=== PATIENT | male | born 1950 | race Caucasian/White ===

== ENCOUNTER → 2017-04-03 | Outpatient (CLI) | payer MEDICAID ==
[~2017-04-03] MED LIST: AUGMENTIN 875 M1 TAB PO; AURALGAN 15 ML15 ML OT; VICODIN 500 MG-1 TAB PO
== END | disposition home or self-care (01) ==
LOC: RAD 16:35
DX: I51.7 Cardiomegaly (principal); I10 Essential (primary) hypertension; J44.9 Chronic obstructive pulmonary disease, unspecified; Z87.891 Personal history of nicotine dependence; Z95.2 Presence of prosthetic heart valve

== ENCOUNTER → 2018-01-16 | Outpatient (CLI) | payer MEDICARE ==
[2018-01-16 16:16] LABS: CREATININE 1.14 mg/dL (0.70-1.30)
== END | disposition home or self-care (01) ==
LOC: US 15:27 → LAB 15:27 → US 16:00 → CT 17:00
PROVIDERS: Radiology Diagnostic Radiology
DX: I65.23 Occlusion and stenosis of bilateral carotid arteries (principal)

== ENCOUNTER → 2019-02-01 | Outpatient (CLI) | payer MEDICARE ==
[~2019-02-01] MED LIST changes: +ASPIRIN ADULT L81 MG PO; +ATORVASTATIN CA80 M1 PO; +CARVEDILOL12.5 MG PO; +ENALAPRIL MALEAT5 MG PO; +TRELEGY ELLIPT1 EACH INH; +VENTOLIN 02.5 MG/3 M INH; +WARFARIN SOD5 MG PO
== END | disposition home or self-care (01) ==
LOC: US 09:30
DX: J44.1 Chronic obstructive pulmonary disease with (acute) exacerbation (principal); I11.9 Hypertensive heart disease without heart failure; E78.5 Hyperlipidemia, unspecified; R94.5 Abnormal results of liver function studies; Z79.01 Long term (current) use of anticoagulants; Z95.2 Presence of prosthetic heart valve

== ENCOUNTER → 2019-02-10 | Outpatient (CLI) | payer MEDICARE ==
[~2019-02-10] MED LIST changes: -ASPIRIN ADULT L81 MG PO; -ATORVASTATIN CA80 M1 PO; -CARVEDILOL12.5 MG PO; -ENALAPRIL MALEAT5 MG PO; -TRELEGY ELLIPT1 EACH INH; -VENTOLIN 02.5 MG/3 M INH; -WARFARIN SOD5 MG PO
[2019-02-12 16:10] LABS: MYCOPLASMA PNEUMONIAE IGG <100 U/mL (0-99); MYCOPLASMA PNEUMONIAE IGM <770 U/mL (0-769)
[2019-02-13 22:04] LABS: PARAINFLUENZA 1 CF Negative (Neg:<1:8); PARAINFLUENZA 2 CF Negative (Neg:<1:8); PARAINFLUENZA 3 CF 1:32 (Neg:<1:8)
[2019-02-15 00:08] LABS: INFLUENZA B ANTIBODIES Negative (Neg:<1:8)
== END | disposition home or self-care (01) ==
LOC: LAB 15:28
PROVIDERS: Nurse Practitioner Family
DX: Z95.2 Presence of prosthetic heart valve (principal)

== ENCOUNTER 2019-04-14 23:05 | Inpatient (IN) | payer MEDICARE ==
[~2019-04-14] VITALS: Ht 182.9 cm; Wt 86.3 kg
[2019-04-14] MEDS ORDERED: WARFARIN SOD5 MG PO (23:06)
[2019-04-14 23:12] VITALS: BP 137/83
[2019-04-14] MEDS ORDERED: ENALAPRIL MALEAT5 MG PO (23:12)
[2019-04-14] MEDS ORDERED: CARVEDILOL12.5 MG PO (23:13)
[2019-04-14] MEDS ORDERED: ATORVASTATIN CA80 M1 PO (23:13)
[2019-04-14] MEDS ORDERED: TRELEGY ELLIPT1 EACH INH (23:13)
[2019-04-14 23:37] VITALS: BP 124/100
[2019-04-14 23:39] LABS: BASO # 0.1 10*3/uL (0.0-0.1); EOS # 0.1 10*3/uL (0.0-0.4); EOS % 1.4 % (1.0-4.0); HEMATOCRIT 41.6 % (42.0-52.0); HEMOGLOBIN 13.5 g/dl (14.0-18.0); LYMPH # 1.1 10*3/uL (1.3-4.4); MEAN CELL VOLUME 96.7 fl (80.0-94.0); MEAN CORPUSCULAR HGB 31.4 pg (27.0-31.0); MEAN CORPUSCULAR HGB CONC 32.5 g/dl (33.0-37.0); MEAN PLATELET VOLUME 10.9 fl (9.6-12.3); MONO # 0.8 10*3/uL (0.1-1.0); MONO % 7.9 % (3.0-9.0); NEUT # 7.7 10*3/uL (2.3-7.9); NEUT % 77.7 % (47.0-73.0); PLATELET COUNT AUTOMATED 194 10*3/uL (130-400); RED CELL DISTRI WIDTH 14.3 % (0-14.5); WHITE BLOOD COUNT 9.9 10*3/uL (4.8-10.8)
--- NOTE | 2019-04-14 23:46 | NUR ---
PT TO CT AT THIS TIME.----ORALIA BUTTERFIELD RN
[2019-04-14 23:49] LABS: ACT PARTIAL THROMBO TIME 25.5 SECONDS (20.0-32.1); INTERNATIONAL NORM RATIO 1.5 (2.0-3.5)
[2019-04-14 23:57] LABS: ALBUMIN 3.8 gm/dl (3.1-4.5); ALKALINE PHOSPHATASE 63 U/L (45-117); BUN 16 mg/dl (7-24); CHLORIDE 105 mmol/L (98-107); CREATININE 1.09 mg/dL (0.70-1.30); SGOT/AST 75 IU/L (3-35); SGPT/ALT 44 U/L (12-78); SODIUM 138 mmol/L (136-145); TROPONIN I 0.043 ng/ml (<0.045)
[2019-04-15] VITALS (7 sets, daily range): BP systolic 108–152; BP diastolic 71–90
[2019-04-15] LABS: POTASSIUM 5.5 mmol/L (3.5-5.1)
[2019-04-15 00:07] LABS: ETHYL ALCOHOL < 3.0 mg/dl (<3)
--- NOTE | 2019-04-15 00:55 | NUR ---
CALLED TO CLARIFY ADMISSION TO THE FLOOR WITH DX OF SYNCOPE/NEW ONSET SEIZURE. READ TRIAGE ASSESSMENT TO , IT STATES PT'S CLAIMS PT HAD CLENCHED HANDS/MOUTH & FACE LOOKED PURPLE. ALSO STATES PT HAS BITE PINZON ON TONGUE. PER , PT OKAY TO COME TO THE FLOOR. SHIFT DIRECTOR NOTIFIED.
[2019-04-15 01:09] LABS: BILIRUBIN NEGATIVE (NEGATIVE); BLOOD TRACE-LYSED (NEGATIVE); CLARITY CLEAR (CLEAR); COLOR YELLOW (YELLOW); GLUCOSE NEGATIVE (NEGATIVE); KETONE NEGATIVE (NEGATIVE); LEUKO ESTERASE NEGATIVE (NEGATIVE); NITRITE NEGATIVE (NEGATIVE); PH 6.5 (5.0-9.0); SPECIFIC GRAVITY 1.015 (1.005-1.030); UROBILINOGEN 0.2 E.U./dl (0.2-1.0)
[2019-04-15 01:19] LABS: BACTERIA TRACE; HYALINE CAST 0-2; RBC 0-2 rbc/hpf (0-2); WBC 0-2 wbc/hpf (0-5)
--- NOTE | 2019-04-15 01:20 | NUR ---
A 68, admitted to , under the services of ANAYELI Pascal DO with a diagnosis of NEW ONSET SEIZURE, SYNCOPE. Chief complaint is SEIZURE. Patient arrived via wheel chair from ER. Monitor applied. Initial assessment completed. Vital signs taken and recorded. ANAYELI PASCAL DO notified of admission to the unit. Orders received. See assessment for past medical history, medications and allergies. Patient and/or family oriented to unit. [address] visitation policy reviewed. Clothing/patient valuable form completed. JASBIR CHING
[2019-04-15 01:21] LABS: URINE AMPHETAMINES < 1000 (1000ng/ml); URINE BARBITURATES < 200 (200ng/ml); URINE BENZODIAZEPINES < 200 (200ng/ml); URINE CANNABINOIDS (THC) > 50 (50ng/ml); URINE COCAINE < 300 (300ng/ml); URINE METHADONE < 300 (300ng/ml); URINE OPIATES < 300 (300ng/ml)
[2019-04-15 01:22] LABS: URINE PHENCYCLIDINE < 25 (25ng/ml)
[2019-04-15] MEDS ORDERED: ASPIRIN ADULT L81 MG PO (01:33)
--- NOTE | 2019-04-15 01:43 | NUR ---
PT MED REC UP TO DATE PER PT RECALL/LIST PROVIDED BY .
--- NOTE | 2019-04-15 01:45 | NUR ---
DR BARBOZA NOTIFIED OF ADMISSION, ORDERS RECIEVED.
--- NOTE | 2019-04-15 02:00 | NUR ---
DR. BARBOZA MADE AWARE OF WOUND ON PATIENTS TONGUE.
--- NOTE | 2019-04-15 02:25 | NUR ---
DR TAMRA MONFIED OF CRITICAL TROPONIN.
--- NOTE | 2019-04-15 06:06 | NUR ---
DR BARBOZA NOTIFIED OF CRITICAL TROPONIN.
--- NOTE | 2019-04-15 07:30 | NUR ---
PT RESTING IN BED. CO OF FEELING SORE FROM HIS FALL. HE COMPLAINS OF BACK PAIN AND LEFT EAR PAIN. DENIES THE NEED FOR ANY PAIN MEDS AT THIS TIME. RESPIRATIONS EASY AND REGULAR. CALL LIGHT WITHIN REACH. WILL CONTINUE TO MONITOR.
--- NOTE | 2019-04-15 07:47 | NUR ---
JANN TSAI [id number] Please refer to the physician's history and physical for past medical history, comorbid conditions, and allergies. Diagnosis: SYNCOPE NEW ONSET SEIZURE Geo Score: 22,LOW OR NO RISK WOUND DESCRIPTIONS: Wound Number: 1 Location of the wound: left side of tongue Type of wound: traumatic Thickness: Partial Size: 1.5cm x 1.0cm x 0.1cm Tunneling: none Undermining: none Sinus Tract: none Presence of Exudate: Sanguineous Amount: Light Color: Red, purple Odor: None Periwound Skin Appearance: Normal Wound edges: approximated Pain (associated with wound): tender to touch How does patient state this happened? pt unsure how this happened believe bit his tongue Surface the patient is resting on: Isoflex SKIN PREVENTION RECOMMENDATION: 1. Pressure redistribution support surface as appropriate 2. Elevate heels 3. Remove boots/TEDS every shift and reapply 4. Head of bed 30 degrees as tolerated 5. Assess nutrition and hydration 6. Manage moisture 7. Avoid the use of containment devices while in bed 8. Use absorptive products on surfaces limit layers of linens on bed 9. Turn and reposition every 1-2 hours in bed and every 1 hour in chair as tolerated 10. Weight shifts every 15 minutes while up in chair 11. Offloading with pillows or device to keep heels elevated off bed 12. Monitor skin at least every shift 13. Inspect under medical devices twice a day WOUND TREATMENT RECOMMENDATIONS: magic mouthwash 10ml every 4 hours prn for wound on tongue.
--- NOTE | 2019-04-15 08:32 | NUR ---
OFFICE NOTIFIED OF NEW CONSULT.
--- NOTE | 2019-04-15 08:37 | NUR ---
Dr. Stewart stated to put wound care recommendations in the hospitalist office for Dr. Mcdaniels.
[2019-04-15 08:50] LABS: BASO % 0.5 % (0.0-1.0); EOS # 0.1 10*3/uL (0.0-0.4); EOS % 1.4 % (1.0-4.0); HEMATOCRIT 41.4 % (42.0-52.0); HEMOGLOBIN 13.5 g/dl (14.0-18.0); LYMPH # 1.1 10*3/uL (1.3-4.4); LYMPH % 14.4 % (27.0-41.0); MEAN CELL VOLUME 95.4 fl (80.0-94.0); MEAN CORPUSCULAR HGB 31.1 pg (27.0-31.0); MEAN CORPUSCULAR HGB CONC 32.6 g/dl (33.0-37.0); MEAN PLATELET VOLUME 10.6 fl (9.6-12.3); MONO # 0.9 10*3/uL (0.1-1.0); MONO % 11.7 % (3.0-9.0); NEUT # 5.7 10*3/uL (2.3-7.9); NEUT % 71.4 % (47.0-73.0); PLATELET COUNT AUTOMATED 166 10*3/uL (130-400); RED BLOOD COUNT 4.34 10*6/uL (4.50-5.90); RED CELL DISTRI WIDTH 14.2 % (0-14.5); WHITE BLOOD COUNT 7.9 10*3/uL (4.8-10.8)
--- NOTE | 2019-04-15 09:00 | NUR ---
Protective Signal Operator in to talk to patient. Patient states lives at home with . There are few steps in the home. Physician: jennifer gonzalez Pharmacy: [facility], [place] health services: none Patient's level of ADLs: INDEPENDENT Patient has working utilities: all working DME: none Follow-up physician's appointment after d/c: will be made by hospitalist nurse director upon discharge Does patient want to access PORTAL?: no Discharge plan discussed with patient, he states he lives at home with his , he states he is independent in adls and ambulation, he states he will return home when medically stable and denies any home needs. JULIANNA HELMS
[2019-04-15 09:05] LABS: BUN 18 mg/dl (7-24); CHLORIDE 110 mmol/L (98-107); CREATININE 0.82 mg/dL (0.70-1.30); SODIUM 141 mmol/L (136-145)
[2019-04-15 09:09] LABS: POTASSIUM 3.7 mmol/L (3.5-5.1)
--- NOTE | 2019-04-15 09:15 | NUR ---
NOTIFIED OF CRITICAL TROPONIN OF 0.092. NO NEW ORDERS RECEIVED.
--- NOTE | 2019-04-15 09:27 | NUR ---
PT CO BACK PAIN RATED 8/10. REQUESTING TYLENOL AT THIS TIME. MEDICATED WITH PRN TYLENOL ORDERED. WILL CHECK EFFECTIVENESS. CALL LIGHT WITHIN REACH.
--- NOTE | 2019-04-15 10:41 | NUR ---
PT STATES TYLENOL WAS EFFECTIVE. WILL CONTINUE TO MONITOR.
--- NOTE | 2019-04-15 11:30 | NUR ---
PT OFF THE FLOOR FOR MRI AT THIS TIME.
--- NOTE | 2019-04-15 14:30 | NUR ---
PT REQUESTING SOMETHING STRONGER FOR PAIN. INFORMED. NEW ORDERS TO BE PUT IN.
--- NOTE | 2019-04-15 15:05 | NUR ---
PT MEDICATED WITH PRN NORCO ORDERED FOR BACK PAIN RATED AN 8/10. WILL CHECK EFFECTIVENESS. CALL LIGHT WITHIN REACH.
--- NOTE | 2019-04-15 16:00 | NUR ---
PT STATES PAIN MED WAS EFFECTIVE RATING PAIN A 4/10. WILL CONTINUE TO MONITOR. CALL LIGHT WITHIN REACH.
--- NOTE | 2019-04-15 19:34 | NUR ---
Patient resting quietly with no c/o discomfort. Respirations easy and regular. Vital signs stable. No overt distress. DEBORA WIGGINS
--- NOTE | 2019-04-15 21:42 | NUR ---
PT COMPLAINS OF KNEE PAIN 6/10 NORCO PRN GIVEN
[2019-04-16] VITALS: BP 125/87
--- NOTE | 2019-04-16 03:56 | NUR ---
SPOKE W DR BERGMAN ABOUT PT TROWING RAMO PVC'S STATED TO JUST WATCH HIM FOR NOW
--- NOTE | 2019-04-16 04:26 | NUR ---
Recommend follow up for wound care in outpatient setting patient refused at this time.
[2019-04-16 07:06] LABS: INTERNATIONAL NORM RATIO 1.6 (2.0-3.5)
[2019-04-16 08:00] VITALS: BP 160/84; BP 168/92
[2019-04-16] MEDS ORDERED: VENTOLIN 02.5 MG/3 M INH (08:14)
--- NOTE | 2019-04-16 09:09 | NUR ---
PATIENT REMAINS NPO FOR STRESS TEST THIS MORNING.
--- NOTE | 2019-04-16 09:32 | NUR ---
PATIENT TO CARDIAC REHAB FOR STRESS TEST BY WHEELCHAIR AT THIS TIME.
--- NOTE | 2019-04-16 10:30 | NUR ---
INFORMED CONSENT OBTAINED FOR LEXISCAN NUCLEAR STRESS TEST WITH DR. CABRALES. RESTING EKG ATRIAL FIB RBBB WITH PVC'S. RESTING HR OF 97 WITH BP OF 144/80. LUNGS CLEAR WITH HARSH BREATH SOUNDS WITH SP02 OF 98% ON ROOM AIR. PT COMPLETED A 1:00 LEXISCAN PROTOCOL RECEIVING LEXISCAN 0.4 MG IV OVER 10 SECONDS. HAD NO CHEST PAIN BUT DID C/O "ODD FEELING" THAT SUBSIDED IN RECOVERY. EKG NONDIAGNOSTIC WITH BBB. HAD A PEAK HR OF 104 WITH BP OF 128/66. LAST RECOVERY HR OF 96 WITH BP OF 136/80. AWAITING SCANNING IN STABLE CONDITION.
--- NOTE | 2019-04-16 11:55 | NUR ---
PATIENT BACK FROM STRESS TEST, RESUMING MEDICATIONS AND DIET.
[2019-04-16 12:00] VITALS: BP 164/98
--- NOTE | 2019-04-16 12:05 | NUR ---
MEDICATED WITH PRN PO NORCO AND MAGIC MOUTHWASH FOR TONGUE INJURY PAIN.
--- NOTE | 2019-04-16 13:29 | NUR ---
case managment contacted [facility] pharmacy, spoke to pharmacist to check on cost of lovenox 86mg sc q12hr x 10 days, pharmacist stated he would check cost and call case management with ganesh
--- NOTE | 2019-04-16 13:30 | NUR ---
PRN PO NORCO AND MAGIC MOUTHWASH EFFECTIVE FOR TONGUE PAIN.
--- NOTE | 2019-04-16 15:00 | NUR ---
case management received a return call from pharmacist at [facility], patient's medication will cost $150. talked to patient, and son, educated them on cost of medication from [facility] and also the cost at [facility] pharmacy, patient and stated they could not afford this medication at [facility] or [facility], also discussed with them that the hospital is able to supply the medication at not cost for one month, also discussed this with [facility] nurse director, case management will follow
--- NOTE | 2019-04-16 15:28 | NUR ---
DR. CABRALES IN TO SEE PATIENT RE: STRESS TEST RESULTS. HE DISCUSSED THE NEED FOR A LIFE VEST TO GO HOME WITH POSSIBLY TOMORROW, AND COREG WILL BE INCREASED. PATIENT MAY NEED AICD PLACED IF EJECTION FRACTION REMAINS LOWER THAN 35% AFTER SEVERAL MONTHS OF TREATMENT WITH MEDICATION.
--- NOTE | 2019-04-16 15:58 | NUR ---
ORDER ON CHART FOR DAILY INR'S UPON DISCHARGE, RESULTS TO CHACORTA COSTA CNP. PATIENT WILL GO HOME WITH PRESCRIPTION FOR LOVENOX SC TO BE OBTAINED FROM [facility]. LOVENOX TO STOP WHEN INR = OR > 2.5MG (PATIENT IS ON PO COUMADIN AND WILL CONTINUE THIS AT HOME. HOSPITALIST NURSE EXPLAINED THIS TO THE PATIENT AND DR. RAYMOND IS AWARE THAT PATIENT WILL BE DISCHARGED WITH A LIFE VEST ORDERED BY DR. CABRALES.
[2019-04-16 16:00] VITALS: BP 125/79
--- NOTE | 2019-04-16 17:27 | NUR ---
MEDICATED WITH PRN PO NORCO FOR TONGUE PAIN.
--- NOTE | 2019-04-16 19:55 | NUR ---
Patient resting quietly with no c/o discomfort. Respirations easy and regular. Vital signs stable. No overt distress. DEBORA WIGGINS
[2019-04-16 20:00] VITALS: BP 120/73
--- NOTE | 2019-04-16 21:25 | NUR ---
PT COMPLAINS OF TOUNGUE PAIN/BACK PAIN 12/08 AND 11/07 PRN NORCO GIVEN
[2019-04-17] VITALS: BP 138/81
--- NOTE | 2019-04-17 01:39 | NUR ---
24 HR CHART CHECK COMPLETED
[2019-04-17 06:40] LABS: INTERNATIONAL NORM RATIO 1.6 (2.0-3.5)
[2019-04-17 08:01] VITALS: BP 162/100
--- NOTE | 2019-04-17 09:00 | NUR ---
case management visits with patient, he is waiting to be fitted for a life vest and then discharged to home, he was reminded that he will need to pharmacy picking tech his lovenox injections in the hospital pharmacy when discharged, he verbalized understanding, case management will follow for any other home needs
--- NOTE | 2019-04-17 09:50 | NUR ---
PRN PO NORCO EFFECTIVE FOR TONGUE PAIN, PER PATIENT.
[2019-04-17 12:00] VITALS: BP 115/66
--- NOTE | 2019-04-17 13:10 | NUR ---
PATIENT AWAITING LIFE VEST-[employer] DATA ANALYST TO MEASURE FOR FIT AND PROVIDE INSTRUCTIONS IN USE OF LIFE VEST. THIS IS TO BE DELIVERED TO THE PATIENT PRIOR TO DISCHARGE.
--- NOTE | 2019-04-17 13:41 | NUR ---
case management was informed that patient would need a life vest prior to being discharged to home, spoke to patient's nurse and she was unaware if the [employer] patient care representative visited with patient this am, job forwarder contacted [employer] patient care representative and he stated he would be in this evening to fit patient for life vest, hospitalist nurse director notified
[2019-04-17 16:00] VITALS: BP 128/77
--- NOTE | 2019-04-17 16:04 | NUR ---
[employer] RESIDENCE LIFE COORDINATOR IN TO FIT PATIENT FOR LIFE VEST AT THIS TIME.
--- NOTE | 2019-04-17 17:13 | NUR ---
MEDICATED WITH PRN PO NORCO FOR TONGUE PAIN.
[2019-04-17] MEDS ORDERED: VITAMIN B-1100 M1 PO (17:30)
[2019-04-17] MEDS ORDERED: COUMADIN7.5 M1 PO (17:30)
[2019-04-17] MEDS ORDERED: CARVEDILOL25 MG PO (17:30)
[2019-04-17] MEDS ORDERED: ENOXAPARIN100 MG/1 M SC (17:30)
--- NOTE | 2019-04-17 18:11 | NUR ---
PATIENT TO OCCUPATIONAL HYGIENIST LOVENOX AT [facility] TOMORROW. ALL OTHER RX'S TO [facility]. PATIENT ADMINISTERED TONIGHT'S DOSE OF LOVENOX TO LEFT ABDOMEN USING CORRECT TECHNIQUE/USE OF ALCOHOL SWAB. Discharge instructions reviewed with patient/family. Patient receptive and verbalizes understanding. Follow-up care arranged. Written instructions given to patient/family. PATIENT DISCHARGED TO [facility], [facility], FOR TRANSPORT HOME BY PRIVATE VEHICLE WITH HIS . AMY SANDY
== END 2019-04-17 18:56 | disposition home or self-care (01) | DRG 101 ==
LOC: ED 23:05 → EDHOLD 04-15 00:48 → 4E 04-15 00:48
PROVIDERS: Emergency Medicine; Internal Medicine; ADMIT Internal Medicine
DX: R56.9 Unspecified convulsions (principal); I38 Endocarditis, valve unspecified; I50.22 Chronic systolic (congestive) heart failure; I48.21 Permanent atrial fibrillation; I10 Essential (primary) hypertension; E78.5 Hyperlipidemia, unspecified; R73.9 Hyperglycemia, unspecified; D53.9 Nutritional anemia, unspecified; I44.7 Left bundle-branch block, unspecified; E66.9 Obesity, unspecified; I25.10 Atherosclerotic heart disease of native coronary artery without angina pectoris; J32.9 Chronic sinusitis, unspecified; I73.9 Peripheral vascular disease, unspecified; Z96.642 Presence of left artificial hip joint; Z68.25 Body mass index [BMI] 25.0-25.9, adult; Z79.82 Long term (current) use of aspirin; Z79.01 Long term (current) use of anticoagulants; Z95.2 Presence of prosthetic heart valve; Z79.899 Other long term (current) drug therapy; Z82.49 Family history of ischemic heart disease and other diseases of the circulatory system; Z86.73 Personal history of transient ischemic attack (TIA), and cerebral infarction without residual deficits

== ENCOUNTER → 2019-11-29 | Outpatient (CLI) | payer MEDICARE ==
[~2019-11-29] MED LIST changes: +ASPIRIN ADULT L81 MG PO; +ATORVASTATIN CA80 M1 PO; +CARVEDILOL12.5 MG PO; +CARVEDILOL25 MG PO; +COUMADIN7.5 M1 PO; +ENALAPRIL MALEAT5 MG PO; +ENOXAPARIN100 MG/1 M SC; +TRELEGY ELLIPT1 EACH INH; +VENTOLIN 02.5 MG/3 M INH; +VITAMIN B-1100 M1 PO; +WARFARIN SOD5 MG PO
[2019-11-29 15:24] LABS: INTERNATIONAL NORM RATIO 4.5 (2.0-3.5)
== END | disposition home or self-care (01) ==
LOC: LAB 14:45
PROVIDERS: Nurse Practitioner Family
DX: Z95.2 Presence of prosthetic heart valve (principal)

== ENCOUNTER → 2020-03-23 | Outpatient (CLI) | payer MEDICARE | END | disposition home or self-care (01) | LOC: COVID19 14:49 | PROVIDERS: ATTEND Nurse Practitioner Family | DX: U07.1 COVID-19 (principal) ==

== ENCOUNTER → 2021-02-04 | Outpatient (CLI) | payer MEDICARE | END | disposition home or self-care (01) | LOC: COVID19 15:37 | PROVIDERS: ATTEND Internal Medicine | DX: Z11.52 Encounter for screening for COVID-19 (principal) ==

== ENCOUNTER → 2021-03-10 | Outpatient (CLI) | payer MEDICARE | END | disposition home or self-care (01) | LOC: RAD 17:07 | PROVIDERS: ATTEND Nurse Practitioner Family | DX: J98.11 Atelectasis (principal); J44.1 Chronic obstructive pulmonary disease with (acute) exacerbation; R04.2 Hemoptysis; R05.9 Cough, unspecified; R06.2 Wheezing ==

== ENCOUNTER → 2021-09-29 | Outpatient (CLI) | payer MEDICARE | END | disposition home or self-care (01) | LOC: RAD 14:42 | PROVIDERS: ATTEND Nurse Practitioner Family | DX: J44.1 Chronic obstructive pulmonary disease with (acute) exacerbation (principal); Z20.822 Contact with and (suspected) exposure to COVID-19; I51.7 Cardiomegaly ==

== ENCOUNTER → 2022-01-19 | Outpatient (CLI) | payer MEDICARE ==
[~2022-01-19] MED LIST changes: +COZAAR25 M1 PO
== END | disposition home or self-care (01) ==
LOC: RAD 12:12
PROVIDERS: ATTEND Nurse Practitioner Family
DX: U07.1 COVID-19 (principal); J44.9 Chronic obstructive pulmonary disease, unspecified; I51.7 Cardiomegaly

== ENCOUNTER → 2022-07-12 | Outpatient (CLI) | payer MEDICARE | END | disposition home or self-care (01) | LOC: RAD 15:13 | PROVIDERS: ATTEND Nurse Practitioner Family | DX: J44.1 Chronic obstructive pulmonary disease with (acute) exacerbation (principal); I70.0 Atherosclerosis of aorta; M47.816 Spondylosis without myelopathy or radiculopathy, lumbar region; M47.814 Spondylosis without myelopathy or radiculopathy, thoracic region ==

== ENCOUNTER → 2022-09-15 | Outpatient (CLI) | payer MEDICARE | END | disposition home or self-care (01) | LOC: MAMMO 12:58 | PROVIDERS: ATTEND Nurse Practitioner Family | DX: N63.20 Unspecified lump in the left breast, unspecified quadrant (principal); N64.89 Other specified disorders of breast; Z80.3 Family history of malignant neoplasm of breast; Z85.46 Personal history of malignant neoplasm of prostate ==

== ENCOUNTER → 2024-07-15 | Outpatient (CLI) | payer MEDICARE ==
[2024-07-15 10:51] LABS: BASO # 0.1 10*3/uL (0.0-0.1); BASO % 1.2 % (0.0-1.0); EOS # 0.2 10*3/uL (0.0-0.4); EOS % 4.1 % (1.0-4.0); HEMATOCRIT 40.4 % (42.0-52.0); MEAN CELL VOLUME 94.8 fl (80.0-94.0); MEAN CORPUSCULAR HGB 30.8 pg (27.0-31.0); MEAN CORPUSCULAR HGB CONC 32.4 g/dl (33.0-37.0); MEAN PLATELET VOLUME 11.2 fl (9.6-12.3); MONO # 0.5 10*3/uL (0.1-1.0); MONO % 8.3 % (3.0-9.0); NEUT # 3.5 10*3/uL (2.3-7.9); NEUT % 58.8 % (47.0-73.0); PLATELET COUNT AUTOMATED 151 10*3/uL (130-400); RED BLOOD COUNT 4.26 10*6/uL (4.50-5.90); RED CELL DISTRI WIDTH 14.6 % (0-14.5); WHITE BLOOD COUNT 5.9 10*3/uL (4.8-10.8)
[2024-07-15 11:21] LABS: ALKALINE PHOSPHATASE 56 U/L (46-116); BUN 18 mg/dl (9-23); CHLORIDE 99 mmol/L (98-107); CHOLESTEROL 147 mg/dL (<200); LDL CHOLESTEROL 65 mg/dL (9-159); POTASSIUM 4.3 mmol/L (3.4-5.1); SGPT/ALT 22 U/L (5-49); TOTAL PROTEIN 6.9 gm/dL (6.0-8.0); TRIGLYCERIDES 148 mg/dl (<150)
== END | disposition home or self-care (01) ==
LOC: LAB 10:24
PROVIDERS: ATTEND Nurse Practitioner Family
DX: Z51.81 Encounter for therapeutic drug level monitoring (principal); Z12.11 Encounter for screening for malignant neoplasm of colon; I10 Essential (primary) hypertension; J44.9 Chronic obstructive pulmonary disease, unspecified; E78.5 Hyperlipidemia, unspecified; F10.10 Alcohol abuse, uncomplicated; Z79.899 Other long term (current) drug therapy; Z95.2 Presence of prosthetic heart valve

== ENCOUNTER → 2024-08-28 | Outpatient (CLI) | payer MEDICARE | END | disposition home or self-care (01) | LOC: LAB 14:52 | PROVIDERS: ATTEND Nurse Practitioner Family | DX: Z51.81 Encounter for therapeutic drug level monitoring (principal); Z79.01 Long term (current) use of anticoagulants; Z95.2 Presence of prosthetic heart valve ==

== ENCOUNTER → 2024-09-02 | Outpatient (CLI) | payer MEDICARE | END | disposition home or self-care (01) | LOC: LAB 15:07 | PROVIDERS: ATTEND Nurse Practitioner Family | DX: Z51.81 Encounter for therapeutic drug level monitoring (principal); Z79.01 Long term (current) use of anticoagulants; Z95.2 Presence of prosthetic heart valve ==

== ENCOUNTER → 2024-10-01 | Outpatient (CLI) | payer MEDICARE | END | disposition home or self-care (01) | LOC: LAB 15:27 | PROVIDERS: ATTEND Nurse Practitioner Family | DX: I48.91 Unspecified atrial fibrillation (principal); Z95.2 Presence of prosthetic heart valve; Z79.01 Long term (current) use of anticoagulants ==

== ENCOUNTER → 2024-10-07 | Outpatient (CLI) | payer MEDICARE | END | disposition home or self-care (01) | LOC: RHCWE 14:14 | PROVIDERS: ATTEND Nurse Practitioner Family | DX: Z51.81 Encounter for therapeutic drug level monitoring (principal); Z95.2 Presence of prosthetic heart valve; Z79.01 Long term (current) use of anticoagulants ==

== ENCOUNTER → 2024-11-11 | Outpatient (CLI) | payer MEDICARE | END | disposition home or self-care (01) | LOC: RHCWE 15:06 | PROVIDERS: ATTEND Nurse Practitioner Family | DX: Z51.81 Encounter for therapeutic drug level monitoring (principal); Z95.2 Presence of prosthetic heart valve; Z79.01 Long term (current) use of anticoagulants ==

== ENCOUNTER → 2024-12-05 | Outpatient (CLI) | payer MEDICARE | END | disposition home or self-care (01) | LOC: RHCWE 14:59 | PROVIDERS: ATTEND Nurse Practitioner Family | DX: I48.91 Unspecified atrial fibrillation (principal); Z79.01 Long term (current) use of anticoagulants ==

== ENCOUNTER → 2024-12-27 | Outpatient (CLI) | payer MEDICARE | END | disposition home or self-care (01) | LOC: RHCWE 11:41 | PROVIDERS: ATTEND Nurse Practitioner Family | DX: Z51.81 Encounter for therapeutic drug level monitoring (principal); Z79.01 Long term (current) use of anticoagulants ==

== ENCOUNTER → 2025-02-17 | Outpatient (CLI) | payer MEDICARE | LOC: LAB 14:47 | PROVIDERS: ATTEND Nurse Practitioner Family | DX: Z51.81 Encounter for therapeutic drug level monitoring (principal); Z79.01 Long term (current) use of anticoagulants ==

== ENCOUNTER → 2025-02-20 | Outpatient (CLI) | payer MEDICARE | END | disposition home or self-care (01) | LOC: LAB 16:13 | PROVIDERS: ATTEND Nurse Practitioner Family | DX: Z51.81 Encounter for therapeutic drug level monitoring (principal); Z79.01 Long term (current) use of anticoagulants ==